=== PATIENT | male | born 1945 | race Caucasian/White ===

== ENCOUNTER → 2018-10-20 | Outpatient (CLI) | payer OTHER | LOC: HYPER 15:47 | DX: I83.228 Varicose veins of left lower extremity with both ulcer of other part of lower extremity and inflammation (principal); L97.812 Non-pressure chronic ulcer of other part of right lower leg with fat layer exposed; I83.025 Varicose veins of left lower extremity with ulcer other part of foot; L97.522 Non-pressure chronic ulcer of other part of left foot with fat layer exposed; I83.011 Varicose veins of right lower extremity with ulcer of thigh; L98.491 Non-pressure chronic ulcer of skin of other sites limited to breakdown of skin; E11.622 Type 2 diabetes mellitus with other skin ulcer; E11.621 Type 2 diabetes mellitus with foot ulcer; E11.36 Type 2 diabetes mellitus with diabetic cataract; E66.01 Morbid (severe) obesity due to excess calories; E11.39 Type 2 diabetes mellitus with other diabetic ophthalmic complication; H40.9 Unspecified glaucoma; G25.81 Restless legs syndrome; G47.62 Sleep related leg cramps; I10 Essential (primary) hypertension; M79.81 Nontraumatic hematoma of soft tissue; Z79.01 Long term (current) use of anticoagulants ==

== ENCOUNTER → 2018-10-26 | Outpatient (CLI) | payer OTHER | LOC: HYPER 09:11 | DX: I83.228 Varicose veins of left lower extremity with both ulcer of other part of lower extremity and inflammation (principal); E11.622 Type 2 diabetes mellitus with other skin ulcer; L97.822 Non-pressure chronic ulcer of other part of left lower leg with fat layer exposed; E11.621 Type 2 diabetes mellitus with foot ulcer; L97.522 Non-pressure chronic ulcer of other part of left foot with fat layer exposed; I83.813 Varicose veins of bilateral lower extremities with pain; E11.36 Type 2 diabetes mellitus with diabetic cataract; E11.39 Type 2 diabetes mellitus with other diabetic ophthalmic complication; H40.9 Unspecified glaucoma; E66.01 Morbid (severe) obesity due to excess calories; G47.62 Sleep related leg cramps; G25.81 Restless legs syndrome; I10 Essential (primary) hypertension; M79.81 Nontraumatic hematoma of soft tissue; Z79.01 Long term (current) use of anticoagulants; Z85.820 Personal history of malignant melanoma of skin; Z68.37 Body mass index [BMI] 37.0-37.9, adult ==

== ENCOUNTER → 2018-10-30 | Outpatient (CLI) | payer OTHER | LOC: HYPER 10-29 07:10 | DX: E11.622 Type 2 diabetes mellitus with other skin ulcer (principal); I83.028 Varicose veins of left lower extremity with ulcer other part of lower leg; L97.822 Non-pressure chronic ulcer of other part of left lower leg with fat layer exposed; E11.621 Type 2 diabetes mellitus with foot ulcer; I83.025 Varicose veins of left lower extremity with ulcer other part of foot; L97.522 Non-pressure chronic ulcer of other part of left foot with fat layer exposed; E11.36 Type 2 diabetes mellitus with diabetic cataract; E11.39 Type 2 diabetes mellitus with other diabetic ophthalmic complication; H40.9 Unspecified glaucoma; E66.01 Morbid (severe) obesity due to excess calories; G25.81 Restless legs syndrome; G47.62 Sleep related leg cramps; I83.813 Varicose veins of bilateral lower extremities with pain; I10 Essential (primary) hypertension; I87.2 Venous insufficiency (chronic) (peripheral); R21 Rash and other nonspecific skin eruption; M79.81 Nontraumatic hematoma of soft tissue; Z85.820 Personal history of malignant melanoma of skin; Z79.01 Long term (current) use of anticoagulants; Z68.37 Body mass index [BMI] 37.0-37.9, adult ==

== ENCOUNTER → 2018-11-05 | Outpatient (CLI) | payer OTHER | LOC: HYPER 06:59 | DX: E11.622 Type 2 diabetes mellitus with other skin ulcer (principal); I83.228 Varicose veins of left lower extremity with both ulcer of other part of lower extremity and inflammation; L97.822 Non-pressure chronic ulcer of other part of left lower leg with fat layer exposed; E11.621 Type 2 diabetes mellitus with foot ulcer; I83.225 Varicose veins of left lower extremity with both ulcer other part of foot and inflammation; L97.522 Non-pressure chronic ulcer of other part of left foot with fat layer exposed; I83.891 Varicose veins of right lower extremity with other complications; E11.36 Type 2 diabetes mellitus with diabetic cataract; E11.39 Type 2 diabetes mellitus with other diabetic ophthalmic complication; E66.01 Morbid (severe) obesity due to excess calories; H40.9 Unspecified glaucoma; G25.81 Restless legs syndrome; G47.62 Sleep related leg cramps; I10 Essential (primary) hypertension; M79.81 Nontraumatic hematoma of soft tissue; Z79.01 Long term (current) use of anticoagulants; Z85.820 Personal history of malignant melanoma of skin; Z68.37 Body mass index [BMI] 37.0-37.9, adult ==

== ENCOUNTER → 2018-11-12 | Outpatient (CLI) | payer OTHER | LOC: HYPER 11-05 14:55 | DX: E11.622 Type 2 diabetes mellitus with other skin ulcer (principal); I83.208 Varicose veins of unspecified lower extremity with both ulcer of other part of lower extremity and inflammation; L97.822 Non-pressure chronic ulcer of other part of left lower leg with fat layer exposed; I83.811 Varicose veins of right lower extremity with pain; E11.36 Type 2 diabetes mellitus with diabetic cataract; E66.01 Morbid (severe) obesity due to excess calories; E11.39 Type 2 diabetes mellitus with other diabetic ophthalmic complication; H40.9 Unspecified glaucoma; G47.62 Sleep related leg cramps; G25.81 Restless legs syndrome; I10 Essential (primary) hypertension; M79.81 Nontraumatic hematoma of soft tissue; Z79.01 Long term (current) use of anticoagulants; Z85.820 Personal history of malignant melanoma of skin ==

== ENCOUNTER → 2018-11-20 | Outpatient (CLI) | payer OTHER | LOC: HYPER 08:28 | DX: E11.622 Type 2 diabetes mellitus with other skin ulcer (principal); I83.228 Varicose veins of left lower extremity with both ulcer of other part of lower extremity and inflammation; L97.822 Non-pressure chronic ulcer of other part of left lower leg with fat layer exposed; I83.891 Varicose veins of right lower extremity with other complications; E11.36 Type 2 diabetes mellitus with diabetic cataract; E66.01 Morbid (severe) obesity due to excess calories; E11.39 Type 2 diabetes mellitus with other diabetic ophthalmic complication; H40.9 Unspecified glaucoma; G47.62 Sleep related leg cramps; G25.81 Restless legs syndrome; I10 Essential (primary) hypertension; M79.81 Nontraumatic hematoma of soft tissue; M79.661 Pain in right lower leg; Z85.820 Personal history of malignant melanoma of skin; Z79.01 Long term (current) use of anticoagulants ==

== ENCOUNTER → 2018-11-27 | Outpatient (CLI) | payer OTHER | LOC: HYPER 07:24 | DX: E11.622 Type 2 diabetes mellitus with other skin ulcer (principal); I83.228 Varicose veins of left lower extremity with both ulcer of other part of lower extremity and inflammation; L97.822 Non-pressure chronic ulcer of other part of left lower leg with fat layer exposed; L84 Corns and callosities; I83.891 Varicose veins of right lower extremity with other complications; E11.36 Type 2 diabetes mellitus with diabetic cataract; E66.01 Morbid (severe) obesity due to excess calories; G47.62 Sleep related leg cramps; G25.81 Restless legs syndrome; H40.9 Unspecified glaucoma; I10 Essential (primary) hypertension; M79.81 Nontraumatic hematoma of soft tissue; Z85.820 Personal history of malignant melanoma of skin; Z79.01 Long term (current) use of anticoagulants ==

== ENCOUNTER → 2018-12-04 | Outpatient (CLI) | payer OTHER | LOC: HYPER 09:54 | DX: E11.622 Type 2 diabetes mellitus with other skin ulcer (principal); I83.228 Varicose veins of left lower extremity with both ulcer of other part of lower extremity and inflammation; L97.822 Non-pressure chronic ulcer of other part of left lower leg with fat layer exposed; I83.813 Varicose veins of bilateral lower extremities with pain; I83.011 Varicose veins of right lower extremity with ulcer of thigh; L97.111 Non-pressure chronic ulcer of right thigh limited to breakdown of skin; L84 Corns and callosities; E11.36 Type 2 diabetes mellitus with diabetic cataract; E11.39 Type 2 diabetes mellitus with other diabetic ophthalmic complication; H40.9 Unspecified glaucoma; E66.01 Morbid (severe) obesity due to excess calories; G25.81 Restless legs syndrome; G47.62 Sleep related leg cramps; I10 Essential (primary) hypertension; M79.81 Nontraumatic hematoma of soft tissue; Z68.37 Body mass index [BMI] 37.0-37.9, adult; Z79.01 Long term (current) use of anticoagulants; Z85.820 Personal history of malignant melanoma of skin ==

== ENCOUNTER → 2018-12-11 | Outpatient (CLI) | payer OTHER | LOC: HYPER 07:52 | DX: E11.622 Type 2 diabetes mellitus with other skin ulcer (principal); I83.228 Varicose veins of left lower extremity with both ulcer of other part of lower extremity and inflammation; L97.822 Non-pressure chronic ulcer of other part of left lower leg with fat layer exposed; I83.011 Varicose veins of right lower extremity with ulcer of thigh; L98.491 Non-pressure chronic ulcer of skin of other sites limited to breakdown of skin; I83.813 Varicose veins of bilateral lower extremities with pain; L84 Corns and callosities; R21 Rash and other nonspecific skin eruption; E11.36 Type 2 diabetes mellitus with diabetic cataract; E11.39 Type 2 diabetes mellitus with other diabetic ophthalmic complication; H40.9 Unspecified glaucoma; E66.01 Morbid (severe) obesity due to excess calories; G25.81 Restless legs syndrome; G47.62 Sleep related leg cramps; I10 Essential (primary) hypertension; M79.81 Nontraumatic hematoma of soft tissue; Z85.820 Personal history of malignant melanoma of skin; Z79.01 Long term (current) use of anticoagulants ==

== ENCOUNTER → 2018-12-18 | Outpatient (CLI) | payer OTHER | LOC: HYPER 12-17 07:21 | DX: E11.622 Type 2 diabetes mellitus with other skin ulcer (principal); I83.228 Varicose veins of left lower extremity with both ulcer of other part of lower extremity and inflammation; L97.822 Non-pressure chronic ulcer of other part of left lower leg with fat layer exposed; I83.813 Varicose veins of bilateral lower extremities with pain; I83.011 Varicose veins of right lower extremity with ulcer of thigh; L98.491 Non-pressure chronic ulcer of skin of other sites limited to breakdown of skin; L84 Corns and callosities; E11.36 Type 2 diabetes mellitus with diabetic cataract; E11.39 Type 2 diabetes mellitus with other diabetic ophthalmic complication; H40.9 Unspecified glaucoma; E66.01 Morbid (severe) obesity due to excess calories; G25.81 Restless legs syndrome; G47.62 Sleep related leg cramps; I10 Essential (primary) hypertension; M79.81 Nontraumatic hematoma of soft tissue; Z85.820 Personal history of malignant melanoma of skin; Z79.01 Long term (current) use of anticoagulants ==

== ENCOUNTER → 2019-01-08 | Outpatient (CLI) | payer OTHER | LOC: HYPER 01-01 08:07 | DX: E11.622 Type 2 diabetes mellitus with other skin ulcer (principal); I83.228 Varicose veins of left lower extremity with both ulcer of other part of lower extremity and inflammation; L97.822 Non-pressure chronic ulcer of other part of left lower leg with fat layer exposed; I83.813 Varicose veins of bilateral lower extremities with pain; I83.011 Varicose veins of right lower extremity with ulcer of thigh; L98.491 Non-pressure chronic ulcer of skin of other sites limited to breakdown of skin; E11.36 Type 2 diabetes mellitus with diabetic cataract; E11.39 Type 2 diabetes mellitus with other diabetic ophthalmic complication; H40.9 Unspecified glaucoma; M79.81 Nontraumatic hematoma of soft tissue; E66.01 Morbid (severe) obesity due to excess calories; G25.81 Restless legs syndrome; G47.62 Sleep related leg cramps; I10 Essential (primary) hypertension; Z85.820 Personal history of malignant melanoma of skin; Z79.01 Long term (current) use of anticoagulants; Z68.37 Body mass index [BMI] 37.0-37.9, adult ==

== ENCOUNTER → 2019-01-22 | Outpatient (CLI) | payer OTHER | LOC: HYPER 07:42 | DX: E11.622 Type 2 diabetes mellitus with other skin ulcer (principal); L97.822 Non-pressure chronic ulcer of other part of left lower leg with fat layer exposed; E11.36 Type 2 diabetes mellitus with diabetic cataract; E11.39 Type 2 diabetes mellitus with other diabetic ophthalmic complication; H40.9 Unspecified glaucoma; H42 Glaucoma in diseases classified elsewhere; I87.2 Venous insufficiency (chronic) (peripheral); M79.81 Nontraumatic hematoma of soft tissue; I10 Essential (primary) hypertension; M79.661 Pain in right lower leg; E66.01 Morbid (severe) obesity due to excess calories; R21 Rash and other nonspecific skin eruption; G47.62 Sleep related leg cramps; L84 Corns and callosities; Z85.828 Personal history of other malignant neoplasm of skin; Z79.01 Long term (current) use of anticoagulants; Z68.37 Body mass index [BMI] 37.0-37.9, adult ==

== ENCOUNTER → 2019-02-12 | Outpatient (CLI) | payer OTHER | LOC: HYPER 07:52 | DX: E11.622 Type 2 diabetes mellitus with other skin ulcer (principal); I83.218 Varicose veins of right lower extremity with both ulcer of other part of lower extremity and inflammation; L97.822 Non-pressure chronic ulcer of other part of left lower leg with fat layer exposed; I83.813 Varicose veins of bilateral lower extremities with pain; I83.011 Varicose veins of right lower extremity with ulcer of thigh; L97.111 Non-pressure chronic ulcer of right thigh limited to breakdown of skin; L84 Corns and callosities; M79.81 Nontraumatic hematoma of soft tissue; E11.39 Type 2 diabetes mellitus with other diabetic ophthalmic complication; H40.9 Unspecified glaucoma; E11.36 Type 2 diabetes mellitus with diabetic cataract; E66.01 Morbid (severe) obesity due to excess calories; G25.81 Restless legs syndrome; G47.62 Sleep related leg cramps; I10 Essential (primary) hypertension; M79.661 Pain in right lower leg; R21 Rash and other nonspecific skin eruption; Z85.820 Personal history of malignant melanoma of skin; Z79.01 Long term (current) use of anticoagulants ==

== ENCOUNTER → 2019-03-01 | Outpatient (CLI) | payer OTHER | LOC: HYPER 09:18 | DX: E11.622 Type 2 diabetes mellitus with other skin ulcer (principal); L97.822 Non-pressure chronic ulcer of other part of left lower leg with fat layer exposed; I87.2 Venous insufficiency (chronic) (peripheral); E11.36 Type 2 diabetes mellitus with diabetic cataract; E11.39 Type 2 diabetes mellitus with other diabetic ophthalmic complication; H40.9 Unspecified glaucoma; H42 Glaucoma in diseases classified elsewhere; I10 Essential (primary) hypertension; M79.81 Nontraumatic hematoma of soft tissue; E66.01 Morbid (severe) obesity due to excess calories; M79.661 Pain in right lower leg; I83.813 Varicose veins of bilateral lower extremities with pain; G25.81 Restless legs syndrome; R53.83 Other fatigue; G47.62 Sleep related leg cramps; R21 Rash and other nonspecific skin eruption; L84 Corns and callosities; R60.0 Localized edema; Z68.37 Body mass index [BMI] 37.0-37.9, adult; Z79.01 Long term (current) use of anticoagulants ==

== ENCOUNTER → 2019-03-15 | Outpatient (CLI) | payer OTHER | LOC: HYPER 06:59 | DX: E11.622 Type 2 diabetes mellitus with other skin ulcer (principal); L97.822 Non-pressure chronic ulcer of other part of left lower leg with fat layer exposed; E11.36 Type 2 diabetes mellitus with diabetic cataract; E11.39 Type 2 diabetes mellitus with other diabetic ophthalmic complication; H40.9 Unspecified glaucoma; H42 Glaucoma in diseases classified elsewhere; E66.01 Morbid (severe) obesity due to excess calories; I10 Essential (primary) hypertension; M79.81 Nontraumatic hematoma of soft tissue; M79.661 Pain in right lower leg; L84 Corns and callosities; I83.813 Varicose veins of bilateral lower extremities with pain; G47.62 Sleep related leg cramps; R21 Rash and other nonspecific skin eruption; R60.0 Localized edema; G25.81 Restless legs syndrome; R53.83 Other fatigue; Z79.01 Long term (current) use of anticoagulants; Z68.37 Body mass index [BMI] 37.0-37.9, adult ==

== ENCOUNTER → 2019-10-19 | Outpatient (CLI) | payer OTHER | LOC: HYPER 08:49 | DX: E11.622 Type 2 diabetes mellitus with other skin ulcer (principal); L97.822 Non-pressure chronic ulcer of other part of left lower leg with fat layer exposed; I87.2 Venous insufficiency (chronic) (peripheral); I10 Essential (primary) hypertension; E11.36 Type 2 diabetes mellitus with diabetic cataract; E11.39 Type 2 diabetes mellitus with other diabetic ophthalmic complication; H42 Glaucoma in diseases classified elsewhere; E66.01 Morbid (severe) obesity due to excess calories; Z68.38 Body mass index [BMI] 38.0-38.9, adult; Z85.828 Personal history of other malignant neoplasm of skin; Z79.82 Long term (current) use of aspirin ==

== ENCOUNTER → 2019-11-09 | Outpatient (CLI) | payer OTHER | LOC: HYPER 10:56 | DX: E11.622 Type 2 diabetes mellitus with other skin ulcer (principal); L97.822 Non-pressure chronic ulcer of other part of left lower leg with fat layer exposed; I87.2 Venous insufficiency (chronic) (peripheral); L84 Corns and callosities; I10 Essential (primary) hypertension; E11.36 Type 2 diabetes mellitus with diabetic cataract; E11.39 Type 2 diabetes mellitus with other diabetic ophthalmic complication; H42 Glaucoma in diseases classified elsewhere; E66.01 Morbid (severe) obesity due to excess calories; Z68.38 Body mass index [BMI] 38.0-38.9, adult; Z85.828 Personal history of other malignant neoplasm of skin; Z79.01 Long term (current) use of anticoagulants ==

== ENCOUNTER → 2020-02-07 | Outpatient (CLI) | payer OTHER | LOC: HYPER 08:11 | DX: E11.622 Type 2 diabetes mellitus with other skin ulcer (principal); L97.821 Non-pressure chronic ulcer of other part of left lower leg limited to breakdown of skin; S80.852A Superficial foreign body, left lower leg, initial encounter; I87.2 Venous insufficiency (chronic) (peripheral); L84 Corns and callosities; I10 Essential (primary) hypertension; E11.36 Type 2 diabetes mellitus with diabetic cataract; E11.39 Type 2 diabetes mellitus with other diabetic ophthalmic complication; H42 Glaucoma in diseases classified elsewhere; E66.01 Morbid (severe) obesity due to excess calories; Z85.820 Personal history of malignant melanoma of skin; Z68.36 Body mass index [BMI] 36.0-36.9, adult; Z79.01 Long term (current) use of anticoagulants; X58.XXXA Exposure to other specified factors, initial encounter; Y93.89 Activity, other specified; Y92.89 Other specified places as the place of occurrence of the external cause; Y99.8 Other external cause status ==